=== PATIENT | female | born 1960 | race Caucasian/White ===

== ENCOUNTER 2018-08-08 10:27 | Emergency (ER) | payer SELFPAY ==
[~2018-08-08] VITALS: Ht 165.1 cm; Wt 92.7 kg
[2018-08-08 10:35] VITALS: BP 174/77; TEMP 98.4
[2018-08-08 11:04] VITALS: PULSE 82
== END 2018-08-08 11:06 | disposition home or self-care (01) ==
LOC: COL.ER 10:27
DX: Z48.02 Encounter for removal of sutures (principal)